=== PATIENT | female | born 1965 | race Caucasian/White ===

== ENCOUNTER 2017-10-25 05:07 | Emergency (ER) | payer SELFPAY ==
[2017-10-25 06:02] LABS: ADD MAN DIFF? NO
[2017-10-25 06:03] LABS: BASOPHIL # 0.1 10^3/ul (0.0-0.1); BASOPHILS % 0.7 % (0.0-2.0); EOSINOPHILS # 0.1 10^3/ul (0.0-0.5); EOSINOPHILS % 1.3 % (0.0-7.0); HEMOGLOBIN 13.7 g/dl (12.0-16.0); LYMPHOCYTES % 56.3 % (15.0-51.0); MEAN CORPUSCULAR HGB CONC 35.1 g/dl (32.0-37.0); MEAN CORPUSCULAR VOLUME 82.6 fl (82.0-101.0); MEAN PLATELET VOLUME 12.2 fl (7.4-10.4); MONOCYTE # 0.5 10^3/ul (0.3-0.9); MONOCYTES % 6.3 % (0.0-11.0); NEUTROPHIL # 2.5 10^3/ul (1.6-7.5); NEUTROPHILS % 35.3 % (39.0-77.0); PLATELET COUNT 290 10^3/UL (140-415); RED BLOOD COUNT 4.72 10^6/ul (4.20-5.40)
[2017-10-25 06:03] LABS: WHITE BLOOD COUNT 7.1 10^3/ul (4.8-10.8)
[2017-10-25] MEDS: KETOROLAC 30 MG INJ IV (06:21)
[2017-10-25 06:23] LABS: ANION GAP 18 (8-16); BLOOD UREA NITROGEN 11 mg/dl (7-20); CALCIUM 9.9 mg/dl (8.4-10.2); CARBON DIOXIDE 20 mmol/L (21-31); CHLORIDE 105 mmol/L (97-110); CREATININE 0.68 mg/dl (0.44-1.00); GLUCOSE 344 mg/dl (70-220); POTASSIUM 3.7 mmol/L (3.5-5.1); SODIUM 139 mmol/L (135-144)
[2017-10-25 06:34] LABS: TROPONIN-I < 0.010 ng/ml (0.000-0.120)
[2017-10-25] MEDS ORDERED: SOD CHLORIDE 0.9% 1,000 ML IV (07:00)
[2017-10-25] MEDS: SOD CHLORIDE 0.9% 500 ML IV (07:18)
[2017-10-25] MEDS: ASPIRIN 81 MG TAB PO (07:18)
[2017-10-25] MEDS: LORAZEPAM 2 MG INJ IV (07:18)
[2017-10-25 10:10] LABS: TROPONIN-I < 0.010 ng/ml (0.000-0.120)
== END 2017-10-25 10:47 | disposition home or self-care (01) ==
LOC: E/R 05:07
DX: F41.9 Anxiety disorder, unspecified (principal); E11.65 Type 2 diabetes mellitus with hyperglycemia; R06.02 Shortness of breath; I10 Essential (primary) hypertension; I25.10 Atherosclerotic heart disease of native coronary artery without angina pectoris; Z79.4 Long term (current) use of insulin; Z79.82 Long term (current) use of aspirin
CPT/HCPCS: 36415; 71045; 80048; 82962; 84484; 85025; 93005; 96374; 96375; 99285-25

== ENCOUNTER 2017-11-16 04:41 | Inpatient (IN) | payer MEDICAID ==
[2017-11-16 06:40] LABS: WHITE BLOOD COUNT 8.9 10^3/ul (4.8-10.8)
[2017-11-16 06:40] LABS: ADD MAN DIFF? NO; BASOPHILS % 0.4 % (0.0-2.0); EOSINOPHILS % 0.1 % (0.0-7.0); HEMOGLOBIN 13.8 g/dl (12.0-16.0); LYMPHOCYTES # 2.9 10^3/ul (0.8-2.9); LYMPHOCYTES % 32.6 % (15.0-51.0); MEAN CORPUSCULAR HEMOGLOBIN 28.4 pg (29.0-33.0); MEAN CORPUSCULAR HGB CONC 33.7 g/dl (32.0-37.0); MEAN CORPUSCULAR VOLUME 84.4 fl (82.0-101.0); MEAN PLATELET VOLUME 12.1 fl (7.4-10.4); MONOCYTE # 0.7 10^3/ul (0.3-0.9); MONOCYTES % 7.3 % (0.0-11.0); NEUTROPHIL # 5.3 10^3/ul (1.6-7.5); PLATELET COUNT 293 10^3/UL (140-415); RED BLOOD COUNT 4.86 10^6/ul (4.20-5.40)
[2017-11-16] MEDS: KETOROLAC 15 MG INJ IV (07:01)
[2017-11-16 07:11] LABS: ANION GAP 14 (8-16); BLOOD UREA NITROGEN 14 mg/dl (7-20); CARBON DIOXIDE 25 mmol/L (21-31); CHLORIDE 102 mmol/L (97-110); CREATININE 0.57 mg/dl (0.44-1.00); GLUCOSE 389 mg/dl (70-220); POTASSIUM 3.9 mmol/L (3.5-5.1); SODIUM 137 mmol/L (135-144)
[2017-11-16] MEDS: SOD CHLORIDE 0.9% 500 ML IV (07:12)
[2017-11-16 07:28] LABS: TROPONIN-I 0.286 ng/ml (0.000-0.120)
[2017-11-16] MEDS: LORAZEPAM 2 MG INJ IV ×2 (07:37→14:05)
[2017-11-16] MEDS: ASPIRIN 81 MG TAB PO ×2 (07:37→13:03)
[2017-11-16] MEDS ORDERED: ACETAMINOPHEN 325 MG TAB PO (09:30)
[2017-11-16] MEDS: ONDANSETRON 4 MG INJ IV (11:26)
[2017-11-16] MEDS: morphine 2 MG INJ IV ×3 (11:27→23:24)
[2017-11-16] MEDS ORDERED: NACL 0.9% 3 ML SYG IV (11:30)
[2017-11-16] MEDS ORDERED: ONDANSETRON 4 MG INJ IV (11:30)
[2017-11-16 11:50] LABS: HEMOGLOBIN A1C 11.5 % (0-5.9)
[2017-11-16 11:58] LABS: CREATINE KINASE 47 IU/L (23-200)
[2017-11-16] MEDS ORDERED: GLUCOSE GEL 15 GRAM TUBE PO ×2 (12:00)
[2017-11-16] MEDS ORDERED: DEXTROSE 50% 50 ML SYRINGE IV ×2 (12:00)
[2017-11-16] MEDS ORDERED: GLUCAGON 1 MG INJ IM (12:00)
[2017-11-16] MEDS: INSULIN ASPART [NOVOLOG] 3 ML PEN SC ×5 (12:00→21:15)
[2017-11-16] MEDS ORDERED: GLUCOSE GEL 15 GRAM TUBE BUCCAL (12:00)
[2017-11-16 12:11] LABS: CK-MB 2.36 ng/ml (0.0-2.4)
[2017-11-16 12:16] LABS: FREE T4 (FREE THYROXINE) 1.15 ng/dl (0.64-1.79)
[2017-11-16] MEDS: GABAPENTIN 300 MG CAP PO ×2 (13:02→21:08)
[2017-11-16] MEDS: BENAZEPRIL 40 MG TAB PO (13:03)
[2017-11-16 13:12] LABS: B-TYPE NATRIURETIC PEPTIDE 529 PG/ML (0-125)
[2017-11-16] MEDS: DILTIAZEM 60 MG TAB PO ×2 (14:09→15:25)
[2017-11-16 19:02] LABS: CREATINE KINASE 36 IU/L (23-200)
[2017-11-16 19:15] LABS: CK INDEX 4.1; CK-MB 1.47 ng/ml (0.0-2.4)
[2017-11-16 19:18] LABS: TROPONIN-I 0.298 ng/ml (0.000-0.120)
[2017-11-16] MEDS: INSULIN GLARGINE [LANTus] (100 UNITS/ML) SYG SC (21:16)
[2017-11-17] MEDS: LORAZEPAM 2 MG INJ IV (02:45)
[2017-11-17] MEDS: INSULIN ASPART [NOVOLOG] 3 ML PEN SC ×8 (02:51→20:38)
[2017-11-17 06:16] LABS: ADD MAN DIFF? NO
[2017-11-17 06:18] LABS: BASOPHILS % 0.4 % (0.0-2.0); EOSINOPHILS % 0.1 % (0.0-7.0); HEMATOCRIT 36.4 % (37.0-47.0); HEMOGLOBIN 12.1 g/dl (12.0-16.0); LYMPHOCYTES # 2.3 10^3/ul (0.8-2.9); LYMPHOCYTES % 31.1 % (15.0-51.0); MEAN CORPUSCULAR HEMOGLOBIN 28.3 pg (29.0-33.0); MEAN CORPUSCULAR HGB CONC 33.2 g/dl (32.0-37.0); MEAN PLATELET VOLUME 12.4 fl (7.4-10.4); MONOCYTE # 0.5 10^3/ul (0.3-0.9); MONOCYTES % 6.1 % (0.0-11.0); NEUTROPHIL # 4.6 10^3/ul (1.6-7.5); NEUTROPHILS % 61.9 % (39.0-77.0); PLATELET COUNT 252 10^3/UL (140-415); RED BLOOD COUNT 4.28 10^6/ul (4.20-5.40); RED CELL DISTRIBUTION WIDTH 12.2 % (11.5-14.5)
[2017-11-17 06:18] LABS: WHITE BLOOD COUNT 7.4 10^3/ul (4.8-10.8)
[2017-11-17 06:58] LABS: CREATINE KINASE 25 IU/L (23-200)
[2017-11-17 07:03] LABS: CK-MB 0.74 ng/ml (0.0-2.4)
[2017-11-17 07:09] LABS: TROPONIN-I 0.154 ng/ml (0.000-0.120)
[2017-11-17 07:10] LABS: ALANINE AMINOTRANSFERASE 23 IU/L (13-69); ALBUMIN 3.4 g/dl (3.3-4.9); ALBUMIN/GLOBULIN RATIO 1.03; ALKALINE PHOSPHATASE 126 IU/L (42-121); ANION GAP 11 (8-16); ASPARTATE AMINO TRANSFERASE 18 IU/L (15-46); BILIRUBIN,INDIRECT 0.2 mg/dl (0-1.1); BILIRUBIN,TOTAL 0.2 mg/dl (0.2-1.3); BLOOD UREA NITROGEN 22 mg/dl (7-20); CALCIUM 9.4 mg/dl (8.4-10.2); CARBON DIOXIDE 26 mmol/L (21-31); CHLORIDE 104 mmol/L (97-110); CREATININE 0.89 mg/dl (0.44-1.00); GLUCOSE 335 mg/dl (70-220); SODIUM 137 mmol/L (135-144); TOTAL PROTEIN 6.7 g/dl (6.1-8.1)
[2017-11-17 07:11] LABS: CHOLESTEROL 208 mg/dl (100-200); HDL CHOLESTEROL 51 mg/dl (37-92); LDL CHOLESTEROL,CALCULATED 100 mg/dl; MAGNESIUM 1.5 mg/dl (1.7-2.5); TRIGLYCERIDES 286 mg/dl (0-149)
[2017-11-17 07:11] LABS: PHOSPHORUS 4.4 mg/dl (2.5-4.9)
[2017-11-17] MEDS ORDERED: MAGNESIUM SULFATE 3 GM in DEXTROSE 5% 100 ML IVPB (08:30)
[2017-11-17] MEDS ORDERED: ASPIRIN 81 MG TAB PO (09:00)
[2017-11-17] MEDS: GABAPENTIN 300 MG CAP PO ×3 (09:19→20:29)
[2017-11-17] MEDS: DULOXETINE 30 MG CAP DR PO (09:19)
[2017-11-17] MEDS: ASPIRIN 81 MG TAB PO (09:19)
[2017-11-17] MEDS: BENAZEPRIL 40 MG TAB PO (09:21)
[2017-11-17] MEDS: ISOSORBIDE MONONITRATE(SR)30 MG TAB PO (09:23)
[2017-11-17] MEDS: ENOXAPARIN 40 MG/0.4 ML SYG SC (09:39)
[2017-11-17] MEDS: MAGNESIUM SULFATE 3 GM in SOD CHLORIDE 0.9% 100 ML IVPB (12:22)
[2017-11-17] MEDS: morphine 2 MG INJ IV ×2 (18:36→22:34)
[2017-11-17] MEDS: ATORVASTATIN 40 MG TAB PO (20:28)
[2017-11-17] MEDS: INSULIN GLARGINE [LANTus] (100 UNITS/ML) SYG SC (20:38)
[2017-11-17] MEDS ORDERED: ATORVASTATIN 40 MG TAB PO (21:00)
[2017-11-18] MEDS: NITROGLYCERIN (SL) 0.4 MG TAB SL (02:02)
[2017-11-18] MEDS: LORAZEPAM 2 MG INJ IV (02:45)
[2017-11-18 05:48] LABS: ADD MAN DIFF? NO
[2017-11-18 05:50] LABS: BASOPHILS % 0.3 % (0.0-2.0); EOSINOPHILS % 0.2 % (0.0-7.0); HEMATOCRIT 35.1 % (37.0-47.0); HEMOGLOBIN 11.5 g/dl (12.0-16.0); LYMPHOCYTES # 2.5 10^3/ul (0.8-2.9); LYMPHOCYTES % 29.3 % (15.0-51.0); MEAN CORPUSCULAR HEMOGLOBIN 27.9 pg (29.0-33.0); MEAN CORPUSCULAR HGB CONC 32.8 g/dl (32.0-37.0); MEAN CORPUSCULAR VOLUME 85.2 fl (82.0-101.0); MEAN PLATELET VOLUME 12.2 fl (7.4-10.4); MONOCYTE # 0.6 10^3/ul (0.3-0.9); MONOCYTES % 6.6 % (0.0-11.0); NEUTROPHIL # 5.5 10^3/ul (1.6-7.5); NEUTROPHILS % 63.3 % (39.0-77.0); PLATELET COUNT 244 10^3/UL (140-415); RED BLOOD COUNT 4.12 10^6/ul (4.20-5.40); RED CELL DISTRIBUTION WIDTH 12.4 % (11.5-14.5)
[2017-11-18 05:50] LABS: WHITE BLOOD COUNT 8.7 10^3/ul (4.8-10.8)
[2017-11-18 06:21] LABS: ANION GAP 10 (8-16); BLOOD UREA NITROGEN 24 mg/dl (7-20); CALCIUM 9.2 mg/dl (8.4-10.2); CARBON DIOXIDE 27 mmol/L (21-31); CHLORIDE 104 mmol/L (97-110); CREATININE 0.77 mg/dl (0.44-1.00); GLUCOSE 233 mg/dl (70-220); SODIUM 136 mmol/L (135-144)
[2017-11-18 06:57] LABS: PHOSPHORUS 4.3 mg/dl (2.5-4.9)
[2017-11-18 06:57] LABS: MAGNESIUM 1.7 mg/dl (1.7-2.5)
[2017-11-18 07:02] LABS: TROPONIN-I 0.113 ng/ml (0.000-0.120)
[2017-11-18] MEDS: INSULIN ASPART [NOVOLOG] 3 ML PEN SC ×7 (07:55→21:00)
[2017-11-18] MEDS: BENAZEPRIL 40 MG TAB PO (08:21)
[2017-11-18] MEDS: DULOXETINE 30 MG CAP DR PO (08:22)
[2017-11-18] MEDS: ISOSORBIDE MONONITRATE(SR)30 MG TAB PO ×2 (08:22→11:17)
[2017-11-18] MEDS: GABAPENTIN 300 MG CAP PO ×3 (08:23→20:37)
[2017-11-18] MEDS: ASPIRIN 81 MG TAB PO (08:23)
[2017-11-18] MEDS: ENOXAPARIN 40 MG/0.4 ML SYG SC (08:31)
[2017-11-18] MEDS ORDERED: LIDOCAINE 1% (MDV) 20 ML INJ (09:24)
[2017-11-18] MEDS ORDERED: IODIXANOL LOCM 100 ML BTL (09:24)
[2017-11-18] MEDS ORDERED: HEPARIN 1000 UNITS/ML 10 ML INJ (09:24)
[2017-11-18] MEDS ORDERED: MIDAZOLAM 1 MG/ML 2 ML INJ (09:24)
[2017-11-18] MEDS ORDERED: FENTAnyl 50 MCG/ML VIAL (09:24)
[2017-11-18] MEDS ORDERED: VERAPAMIL 5 MG INJ (09:25)
[2017-11-18] MEDS ORDERED: NITROGLYCERIN (IC) 100 MCG/ML INJ (09:25)
[2017-11-18] MEDS: SOD CHLORIDE 0.9% 1,000 ML IV (11:13)
[2017-11-18] MEDS: ACETAMINOPHEN 325 MG TAB PO (12:05)
[2017-11-18] MEDS: HYDROCODONE/APAP (5/325) TAB PO ×2 (15:44→22:08)
[2017-11-18] MEDS: morphine 2 MG INJ IV (18:36)
[2017-11-18] MEDS: ATORVASTATIN 40 MG TAB PO (20:37)
[2017-11-18] MEDS: INSULIN GLARGINE [LANTus] (100 UNITS/ML) SYG SC (21:25)
[2017-11-19] MEDS: LORAZEPAM 2 MG INJ IV (01:59)
[2017-11-19] MEDS: INSULIN ASPART [NOVOLOG] 3 ML PEN SC ×6 (07:35→17:42)
[2017-11-19] MEDS: DULOXETINE 30 MG CAP DR PO (08:47)
[2017-11-19] MEDS: BENAZEPRIL 40 MG TAB PO (08:47)
[2017-11-19] MEDS: ISOSORBIDE MONONITRATE(SR)60 MG TAB PO (08:48)
[2017-11-19] MEDS: ASPIRIN 81 MG TAB PO (08:48)
[2017-11-19] MEDS: GABAPENTIN 300 MG CAP PO ×2 (08:48→13:56)
[2017-11-19] MEDS: ENOXAPARIN 40 MG/0.4 ML SYG SC (08:52)
[2017-11-19 13:20] LABS: ADD MAN DIFF? NO
[2017-11-19 13:23] LABS: WHITE BLOOD COUNT 6.2 10^3/ul (4.8-10.8)
[2017-11-19 13:23] LABS: BASOPHILS % 0.5 % (0.0-2.0); EOSINOPHILS % 0.6 % (0.0-7.0); HEMATOCRIT 35.5 % (37.0-47.0); HEMOGLOBIN 11.6 g/dl (12.0-16.0); LYMPHOCYTES # 2.2 10^3/ul (0.8-2.9); MEAN CORPUSCULAR HEMOGLOBIN 28.2 pg (29.0-33.0); MEAN CORPUSCULAR HGB CONC 32.7 g/dl (32.0-37.0); MEAN CORPUSCULAR VOLUME 86.4 fl (82.0-101.0); MEAN PLATELET VOLUME 12.3 fl (7.4-10.4); MONOCYTE # 0.4 10^3/ul (0.3-0.9); MONOCYTES % 6.6 % (0.0-11.0); NEUTROPHIL # 3.6 10^3/ul (1.6-7.5); PLATELET COUNT 246 10^3/UL (140-415); RED BLOOD COUNT 4.11 10^6/ul (4.20-5.40); RED CELL DISTRIBUTION WIDTH 12.3 % (11.5-14.5)
[2017-11-19 13:40] LABS: ANION GAP 12 (8-16); BLOOD UREA NITROGEN 19 mg/dl (7-20); CALCIUM 9.4 mg/dl (8.4-10.2); CARBON DIOXIDE 25 mmol/L (21-31); CHLORIDE 106 mmol/L (97-110); CREATININE 0.64 mg/dl (0.44-1.00); GLUCOSE 152 mg/dl (70-220); POTASSIUM 3.7 mmol/L (3.5-5.1); SODIUM 139 mmol/L (135-144)
[2017-11-19] MEDS: HYDROCODONE/APAP (5/325) TAB PO (13:57)
== END 2017-11-19 19:32 | disposition home or self-care (01) | DRG 281 ==
LOC: E/R 04:41 → TEL 11-18 10:45
PROVIDERS: Internal Medicine
PROC: 4A023N7 Measurement of Cardiac Sampling and Pressure, Left Heart, Percutaneous Approach (ICD-10-PCS; principal; 2017-11-18 09:25)
PROC: B211YZZ Fluoroscopy of Multiple Coronary Arteries using Other Contrast (ICD-10-PCS; 2017-11-18 09:25)
DX: I21.4 Non-ST elevation (NSTEMI) myocardial infarction (principal); I42.8 Other cardiomyopathies; I50.22 Chronic systolic (congestive) heart failure; I11.0 Hypertensive heart disease with heart failure; E11.9 Type 2 diabetes mellitus without complications; I25.10 Atherosclerotic heart disease of native coronary artery without angina pectoris; F32.9 Major depressive disorder, single episode, unspecified; F41.9 Anxiety disorder, unspecified; M79.7 Fibromyalgia; E78.5 Hyperlipidemia, unspecified; E66.9 Obesity, unspecified; Z68.37 Body mass index [BMI] 37.0-37.9, adult; Z79.82 Long term (current) use of aspirin; Z79.4 Long term (current) use of insulin; Z86.73 Personal history of transient ischemic attack (TIA), and cerebral infarction without residual deficits
CPT/HCPCS: 36415; 71045; 80048; 80053; 80061; 82550; 82553; 82962; 83036; 83735; 83880; 84100; 84439; 84443; 84484; 85025; 93005; 93306; 93458; 96374; 96375; 97161; 99285-25

== ENCOUNTER 2017-11-26 17:07 | Emergency (ER) | payer MEDICAID ==
[2017-11-26] MEDS: ONDANSETRON (ODT) 4 MG TAB ODT (17:47)
[2017-11-26] MEDS: MECLIZINE 12.5 MG TAB PO (17:47)
[2017-11-26 17:55] LABS: URINE BLOOD (Dip) POC 3+ (NEGATIVE); URINE KETONES (Dip) POC Negative (NEGATIVE); URINE LEUKOCYTE EST (Dip) POC 1+ (NEGATIVE); URINE NITRITE (Dip) POC Negative (NEGATIVE); URINE TOTAL PROTEIN POC Trace (NEGATIVE)
[2017-11-26] MEDS: NITROFURANTOIN (SR) 100 MG CAP PO (19:34)
== END 2017-11-26 19:42 | disposition home or self-care (01) ==
LOC: E/R 17:07
DX: N30.90 Cystitis, unspecified without hematuria (principal); R42 Dizziness and giddiness; E11.65 Type 2 diabetes mellitus with hyperglycemia; I10 Essential (primary) hypertension; E66.9 Obesity, unspecified; I25.10 Atherosclerotic heart disease of native coronary artery without angina pectoris; Z79.4 Long term (current) use of insulin; Z86.73 Personal history of transient ischemic attack (TIA), and cerebral infarction without residual deficits; Z79.82 Long term (current) use of aspirin
CPT/HCPCS: 70450; 81003; 82962; 93005; 99284-25

== ENCOUNTER 2018-01-02 15:02 | Emergency (ER) | payer MEDICAID ==
[2018-01-02] MEDS: KETOROLAC 15 MG INJ IV (16:18)
[2018-01-02] MEDS: SOD CHLORIDE 0.9% 1,000 ML IV (16:18)
[2018-01-02 16:28] LABS: ADD MAN DIFF? NO
[2018-01-02 16:29] LABS: WHITE BLOOD COUNT 7.3 10^3/ul (4.8-10.8)
[2018-01-02 16:29] LABS: BASOPHILS % 0.4 % (0.0-2.0); EOSINOPHILS # 0.1 10^3/ul (0.0-0.5); EOSINOPHILS % 0.7 % (0.0-7.0); HEMATOCRIT 37.3 % (37.0-47.0); HEMOGLOBIN 12.5 g/dl (12.0-16.0); LYMPHOCYTES # 2.9 10^3/ul (0.8-2.9); LYMPHOCYTES % 40.1 % (15.0-51.0); MEAN CORPUSCULAR HEMOGLOBIN 28.3 pg (29.0-33.0); MEAN CORPUSCULAR HGB CONC 33.5 g/dl (32.0-37.0); MEAN CORPUSCULAR VOLUME 84.6 fl (82.0-101.0); MONOCYTE # 0.5 10^3/ul (0.3-0.9); MONOCYTES % 6.4 % (0.0-11.0); NEUTROPHIL # 3.8 10^3/ul (1.6-7.5); NEUTROPHILS % 52.1 % (39.0-77.0); PLATELET COUNT 254 10^3/UL (140-415); RED BLOOD COUNT 4.41 10^6/ul (4.20-5.40)
[2018-01-02 16:32] LABS: INR 0.86; PROTIME 11.8 Sec (11.9-14.9); PT RATIO 0.9
[2018-01-02 16:36] LABS: ALANINE AMINOTRANSFERASE 20 IU/L (13-69); ALBUMIN 3.6 g/dl (3.3-4.9); ALBUMIN/GLOBULIN RATIO 0.97; ALKALINE PHOSPHATASE 118 IU/L (42-121); ANION GAP 12 (5-13); ASPARTATE AMINO TRANSFERASE 21 IU/L (15-46); BILIRUBIN,INDIRECT 0.7 mg/dl (0-1.1); BILIRUBIN,TOTAL 0.7 mg/dl (0.2-1.3); BLOOD UREA NITROGEN 15 mg/dl (7-20); CALCIUM 10.1 mg/dl (8.4-10.2); CARBON DIOXIDE 26 mmol/L (21-31); CHLORIDE 99 mmol/L (97-110); CREATININE 0.76 mg/dl (0.44-1.00); Estimated GFR > 60 mL/min (>60); GLUCOSE 248 mg/dl (70-220); POTASSIUM 4.1 mmol/L (3.5-5.1); SODIUM 137 mmol/L (135-144); TOTAL PROTEIN 7.3 g/dl (6.1-8.1)
[2018-01-02 16:48] LABS: B-TYPE NATRIURETIC PEPTIDE 132 PG/ML (0-125); TROPONIN-I < 0.012 ng/ml (0.000-0.120)
[2018-01-02] MEDS: LORAZEPAM 2 MG INJ IV (18:07)
== END 2018-01-02 18:10 | disposition home or self-care (01) ==
LOC: E/R 15:02
DX: R07.9 Chest pain, unspecified (principal); F41.9 Anxiety disorder, unspecified; E11.65 Type 2 diabetes mellitus with hyperglycemia; I10 Essential (primary) hypertension; E66.9 Obesity, unspecified; Z68.36 Body mass index [BMI] 36.0-36.9, adult; Z79.4 Long term (current) use of insulin; Z79.82 Long term (current) use of aspirin
CPT/HCPCS: 36415; 71045; 80053; 83880; 84484; 85025; 85610; 93005; 96361; 96374; 99285-25

== ENCOUNTER 2018-11-29 03:27 | Emergency (ER) | payer OTHER, MEDICAID ==
[2018-11-29 04:07] LABS: ADD MAN DIFF? NO
[2018-11-29 04:11] LABS: WHITE BLOOD COUNT 7.2 10^3/ul (4.8-10.8)
[2018-11-29 04:11] LABS: BASOPHILS % 0.6 % (0.0-2.0); EOSINOPHILS # 0.2 10^3/ul (0.0-0.5); EOSINOPHILS % 2.4 % (0.0-7.0); HEMOGLOBIN 10.8 g/dl (12.0-16.0); LYMPHOCYTES # 3.1 10^3/ul (0.8-2.9); LYMPHOCYTES % 42.7 % (15.0-51.0); MEAN CORPUSCULAR HGB CONC 32.7 g/dl (32.0-37.0); MEAN CORPUSCULAR VOLUME 85.5 fl (82.0-101.0); MEAN PLATELET VOLUME 11.1 fl (7.4-10.4); MONOCYTE # 0.5 10^3/ul (0.3-0.9); MONOCYTES % 7.4 % (0.0-11.0); NEUTROPHIL # 3.4 10^3/ul (1.6-7.5); NEUTROPHILS % 46.6 % (39.0-77.0); PLATELET COUNT 245 10^3/UL (140-415); RED BLOOD COUNT 3.86 10^6/ul (4.20-5.40); RED CELL DISTRIBUTION WIDTH 13.1 % (11.5-14.5)
[2018-11-29] MEDS: LACTATED RINGER'S 1,000 ML IV (04:14)
[2018-11-29] MEDS: morphine 4 MG/ML VIAL IV (04:14)
[2018-11-29] MEDS: ONDANSETRON 4 MG INJ IV (04:14)
[2018-11-29 04:28] LABS: ANION GAP 8 (5-13); BLOOD UREA NITROGEN 11 mg/dl (7-20); CALCIUM 9.6 mg/dl (8.4-10.2); CARBON DIOXIDE 26 mmol/L (21-31); CHLORIDE 103 mmol/L (97-110); CREATININE 0.75 mg/dl (0.44-1.00); Estimated GFR > 60 mL/min (>60); GLUCOSE 281 mg/dl (70-220); POTASSIUM 3.7 mmol/L (3.5-5.1); SODIUM 137 mmol/L (135-144)
[2018-11-29] MEDS: IODIXANOL LOCM 100 ML BTL (04:34)
[2018-11-29] MEDS: SOD CHLORIDE 0.9% 100 ML (04:34)
[2018-11-29 04:41] LABS: TROPONIN-I < 0.012 ng/ml (0.000-0.120)
== END 2018-11-29 05:42 | disposition home or self-care (01) ==
LOC: E/R 03:27
DX: R00.2 Palpitations (principal); F41.9 Anxiety disorder, unspecified; I11.0 Hypertensive heart disease with heart failure; I50.9 Heart failure, unspecified; E11.9 Type 2 diabetes mellitus without complications; E66.9 Obesity, unspecified; Z86.73 Personal history of transient ischemic attack (TIA), and cerebral infarction without residual deficits; Z79.82 Long term (current) use of aspirin; Z79.4 Long term (current) use of insulin; Z68.37 Body mass index [BMI] 37.0-37.9, adult
CPT/HCPCS: 36415; 71045; 71275; 80048; 84484; 85025; 93005; 96374; 96375; 99285-25